=== PATIENT | male | born 1980 | race Two or more races ===

== ENCOUNTER 2018-03-29 18:37 | Emergency (ER) | payer BC ==
[2018-03-29 18:53] VITALS: BP 164/76; PULSE 93; RESP 18; TEMP 98.1; O2SAT 98
== END 2018-03-29 19:44 | disposition left against medical advice (07) ==
LOC: C.ER 18:37
DX: Z02.89 Encounter for other administrative examinations (principal); T14.90XA Injury, unspecified, initial encounter